=== PATIENT | female | born 2000 | race Caucasian/White ===

== ENCOUNTER → 2020-10-08 14:57 | Outpatient (BNVA) | payer MEDICAID, SELFPAY | PROVIDERS: Visit Provider Advanced Practice Midwife | DX: Z32.02 Encounter for pregnancy test, result negative (principal) | CPT/HCPCS: 81025; 99212 ==

== ENCOUNTER 2021-03-04 09:23 | Outpatient (REF) | payer MEDICAID, SELFPAY ==
[2021-03-04 11:07] LABS: Hematocrit 40.1 % (37-47); Hemoglobin 13.2 g/dl (12.0-16.0); Mean Corpuscular HGB Conc 32.9 g/dl (31.0-35.0); Mean Corpuscular Hemoglobin 30.6 pg (27.0-33.0); Mean Platelet Volume 10.5 fL (9.4-12.3); Platelet Count 183 X10*3/uL (160-400); Red Blood Count 4.31 X10*6/uL (4.20-5.50); Red Cell Distribution Width 11.9 % (11.0-16.0)
[2021-03-04 12:14] LABS: Thyroid Stimulating Hormone 0.95 uIU/mL (0.32-4.0)
[2021-03-04 14:03] LABS: CT PCR NOT DETECTED (Not Detect.); NG PCR NOT DETECTED (Not Detect.)
[2021-03-05 09:11] LABS: BV Int Neg Control Negative (Negative); BV Int Pos Control Positive (Positive)
== END 2021-03-04 09:24 | disposition home or self-care (01) ==
LOC: HO.LAB 09:23
PROVIDERS: Visit Provider Advanced Practice Midwife
DX: N93.9 Abnormal uterine and vaginal bleeding, unspecified (principal); N92.1 Excessive and frequent menstruation with irregular cycle; Z20.2 Contact with and (suspected) exposure to infections with a predominantly sexual mode of transmission
CPT/HCPCS: 36415; 81025; 84443; 85027; 87480; 87491; 87510; 87591; 87660; 99212

== ENCOUNTER 2021-06-12 13:48 | Outpatient (REF) | payer MEDICAID, SELFPAY ==
[2021-06-13 11:37] LABS: CT PCR NOT DETECTED (Not Detect.); NG PCR NOT DETECTED (Not Detect.)
== END 2021-06-12 13:49 | disposition home or self-care (01) ==
LOC: HO.LAB 13:48
PROVIDERS: Advanced Practice Midwife; Visit Provider Advanced Practice Midwife
DX: Z01.419 Encounter for gynecological examination (general) (routine) without abnormal findings (principal); Z11.3 Encounter for screening for infections with a predominantly sexual mode of transmission; Z20.2 Contact with and (suspected) exposure to infections with a predominantly sexual mode of transmission; F17.200 Nicotine dependence, unspecified, uncomplicated; Z71.6 Tobacco abuse counseling
CPT/HCPCS: 87491; 87591; 88142

== ENCOUNTER 2021-06-16 10:08 | Emergency (ER) | payer MEDICAID, SELFPAY ==
[2021-06-16 10:16] VITALS: BP 100/67; PULSE 97; RESP 16; TEMP 37.2; O2SAT 97; BMI 29.2
--- NOTE | 2021-06-16 11:41 | ED.BACK ---
HPI - Back Pain/Injury General Chief Complaint: Back Pain/Injury Stated Complaint: back pain Time Seen by Provider: 06/16/21 11:12 Source: patient Mode of arrival: ambulatory Limitations: no limitations History of Present Illness HPI Narrative: 20-year-old female who presents emergency department for evaluation lower back injury. 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 The injury occurred Wednesday06/13/2021. She states that initially the pain was mild to moderate intensity but the next day, the pain was severe and was 10/10. She describes the pain is a constant, tightness like sensation with numbness that radiates down her right leg to her foot mainly along the lateral aspect. She denied any weakness or loss of bowel or bladder control. She states that she has been taking ibuprofen for the pain with minimal relief. The patient has not been able to work secondary to her pain. She states that she had 1 episode of emesis triggered by severe pain. She states the pain is 10/10 at its worse and is 6/10 here in the emergency department. The patient denied fever, chills, Related Data Previous Rx's Medication Instructions Recorded cyclobenzaprine 10 mg tablet 10 mg PO TID PRN #15 tab 06/16/21 prednisone 20 mg tablet 60 mg PO DAILY 7 Days #21 tab 06/16/21 Allergies Allergy/AdvReac Type Severity Reaction Status Date / Time amitriptyline [AMITRIPTYLINE] Allergy Severe RASH Verified 06/12/21 14:50 azithromycin [From ZITHROMAX] Allergy Severe SWELLING Verified 06/12/21 14:50 erythromycin base Allergy Intermediate RASH Verified 06/12/21 14:50 [From ERYTHROCIN] Erythromycin Allergy Unknown rash Uncoded 04/12/20 00:00 Review of Systems Review of Systems: Yes all other systems are reviewed and are negative [facility] LAT[facility] Past Medical History FOR[facility], LAT[facility] Narrative: Social history: The patient denies cigarette use but does use nicotine vaping products multiple times a day. She occasionally drinks alcohol, she denies drug use. Medical History H/O bipolar disorder History of anxiety PTSD (post-traumatic stress disorder) Surgical History Hx of adenoidectomy Hx of wisdom tooth extraction Family History Family History (Updated 06/12/21 @ 15:24 by Emre Carpenter) Maternal Uncle Breast cancer Social History Social History Alcohol intake: current Alcohol intake frequency: a few times a week Patient Tobacco Use Status: Current everyday Tobacco user e-Cigarette/Vaping Use: Currently Using Advance Directives: No Advance Directives Information Provided: No Patient : No Physical Exam Vital Signs: Vital Signs: Last Vital Signs Temp 98.9 F 06/16/21 10:16 Pulse 97 06/16/21 10:16 Resp 16 06/16/21 10:16 BP 100/67 06/16/21 10:16 Pulse Ox 97 06/16/21 10:16 Body Mass Index 29.2 Const: General: cooperative and no acute distress Orientation/consciousness: oriented to person and oriented to place Limitations: no limitations HENMT: Head: Yes normal to inspection, Yes normocephalic and Yes atraumatic Ears: external ears normal General nose exam: Normal external nose present Face and sinus: Yes normal facial exam Mouth: Normal oral and palatal mucosa present Throat: Yes posterior oropharynx normal Eyes: General: appearance normal, both eyes and all related structures Pupils: Equal, round and reactive pupils present Neck: Neck: Yes normal visual inspection, Yes no lymphadenopathy, Yes trachea midline and Yes supple Chest: Chest palpation & inspection: normal inspection of the chest and normal palpation of entire chest wall Resp: Effort & Inspection: normal respiratory effort and able to speak in complete sentences Auscultation: clear to auscultation bilaterally Cardio: Rate: regular rate Rhythm: regular rhythm Heart sounds: S1 normal heart sound present, S2 normal heart sound present and no murmurs GI: Inspection: Yes normal to inspection Palpation (GI): Soft to palpation, nontender and no guarding Auscultation: normal bowel sounds : General: Yes no CVA tenderness Back/Spine/Pelvis: Back: no CVA tenderness Thoracic/Lumbar Spine: thoracic and lumbar spine normal to inspection, straight leg raise negative bilaterally, paraspinal muscle tenderness on the right in the lower lumbar, No thoracic spinal tenderness and No lumbar spinal tenderness Skin: General skin exam: no rashes or lesions noted Neuro: General: oriented to person and oriented to place Cranial nerves: Yes CN's II-XII intact bilaterally and Yes Equal, round and reactive pupils present Cognition (Neuro): normal cognition Motor exam (neuro): 5/5 motor strength present throughout Extrem: General: Yes normal to inspection Psych: Appearance: grossly normal Speech and movement: Normal speech and movement present Affect: normal affect Attitude: cooperative Thought process: Normal thought process present Thought content: Normal thought content present Course Course Course Narrative: 20-year-old female who presents emergency department for evaluation of 5 days of right lower back pain with numbness that goes down her right leg to her foot with no weakness or loss of bowel or bladder control. 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 The patient has been taking ibuprofen with no improvement of her pain. Physical examination did reveal tenderness with palpation of the lumbar lower paraspinal muscles with no vertebral tenderness. Her neurologic exam was nonfocal with normal strength and normal sensory exam. Patient's presentation is consistent with lumbar strain with radiculopathy. The patient was advised to stop taking ibuprofen and she started on prednisone 60 mg once a day for 7 days. She was advised to take Tylenol for pain and she was also given prescription for Flexeril 10 mg 3 times a day as needed for pain and spasm. The patient was given verbal and printed instructions prior to discharge. The patient was advised to follow-up with her PCP/occupational Health Clinic in 2 days and to return to the emergency department if her symptoms get worse or if she develops any new symptoms that are concerning to her. The patient was advised not to work until she is re-evaluated by the occupational health clinic or her PCP. Discharge Plan Discharge Clinical Impression: Radiculopathy of lumbar region Back strain Qualifiers: Encounter type: initial encounter Qualified Code(s): S39.012A - Strain of muscle, fascia and tendon of lower back, initial encounter Patient Disposition: Home, Self-Care Instructions: Lumbar Radiculopathy (ED) Additional Instructions: Back Pain Discharge Instructions: Take prednisone 20 mg pills, 3 pills once a day for 7 days. This is a strong anti-inflammatory pain medication. Do not take any [id number]-[id number] anti-inflammatory medications while urine prednisone such as ibuprofen, Motrin, Advil, Aleve, naproxen. Take Tylenol (acetaminophen) 500 mg pills, 2 pills every 6 hours as needed for pain. Take Flexeril (cyclobenzaprine) 10 mg pills, 1 pill every 8 hours as needed for pain or muscle spasm. This is a prescription medication. This medication will make you sleepy, therefore do not drive or work while taking this medication. Apply ice for 15 minutes to the area that hurts on your back, then apply a heating a pad on low for 15 minutes. Do this 4-6 times a day to help reduce the pain in your back. Continue with normal activities as tolerated since staying in bed and not moving around will make your pain worse. Please return to the Emergency Department or see your doctor immediately if your symptoms get worse or if you develop any new symptoms that are concerning you. This is a work related injury. Call your primary care doctor's office to see if they take care of people that are injured at work (worker's compensation). If your primary care doctor does not deal with worker's compensation them call our Occupational Health Clinic, [facility] . No work until 06/18/2021. You should follow-up with the occupational health clinic or your PCP before this day to determine your back to work status. Please read the other printed discharge instructions on back pain. Prescriptions: New cyclobenzaprine 10 mg tablet 10 mg PO TID PRN (Reason: pain, muscle spasm) Qty: 15 RF: 0 prednisone 20 mg tablet 60 mg PO DAILY 7 Days Qty: 21 RF: 0 Interventions: ED Discharge Assessment Last Done: 06/16/21 12:05 Discharge Date/Time: 06/16/21 12:05
== END 2021-06-16 12:05 | disposition home or self-care (01) ==
PROVIDERS: Emergency Provider Emergency Medicine Emergency Medical Services
DX: M54.16 Radiculopathy, lumbar region (principal); F17.200 Nicotine dependence, unspecified, uncomplicated; Z71.6 Tobacco abuse counseling; Z79.899 Other long term (current) drug therapy
CPT/HCPCS: 99283

== ENCOUNTER 2021-07-08 14:34 | Emergency (ER) | payer MEDICAID, SELFPAY ==
--- NOTE | ~2021-07-08 | US_ITS ---
Pelvic ultrasound History: Left lower quadrant pain. No bleeding. Quantitative hCG 06934 (07/08/2021). Last menstrual period 02/26/2021 corresponding to a gestational age of 6 weeks and 6 days. Technique and Findings: Transabdominal and transvaginal images were obtained. No comparison studies are available. The uterus measures 10.9 x 4.8 x 5.9 cm. There is a single live intrauterine . The measurements are as follows: crown-rump length (0.7 cm), and heart rate (122). There is a small subchorionic bleed measuring 0.8 x 0.3 x 0.5 cm. The approximate gestational age of the fetus is 6 weeks and 5 days. The uterus appears otherwise unremarkable. The cervical os is closed with trace amount of free fluid. The right ovary measures 4.4 x 1.6 x 2.4 cm. The left ovary measures 2.2 x 1.5 x 1.3 cm and demonstrates no focal lesions. A normal flow pattern is seen in both ovaries on color Doppler. Corpus luteum cyst is present in the right ovary and measures 1.7 x 1.2 x 1.5 cm. There is no evidence of free fluid within the pelvis. US/US transvaginal Impression: Single live intrauterine of an approximate gestational age of 6 weeks and 5 days. Small subchorionic bleeding. Right corpus luteal cyst. No evidence of ovarian torsion at the moment of this study.
--- NOTE | ~2021-07-08 | US_ITS ---
Pelvic ultrasound History: Left lower quadrant pain. No bleeding. Quantitative hCG [id number] (07/08/2021). Last menstrual period 02/26/2021 corresponding to a gestational age of 6 weeks and 6 days. Technique and Findings: Transabdominal and transvaginal images were obtained. No comparison studies are available. The uterus measures 10.9 x 4.8 x 5.9 cm. There is a single live intrauterine . The measurements are as follows: crown-rump length (0.7 cm), and heart rate (122). There is a small subchorionic bleed measuring 0.8 x 0.3 x 0.5 cm. The approximate gestational age of the fetus is 6 weeks and 5 days. The uterus appears otherwise unremarkable. The cervical os is closed with trace amount of free fluid. The right ovary measures 4.4 x 1.6 x 2.4 cm. The left ovary measures 2.2 x 1.5 x 1.3 cm and demonstrates no focal lesions. A normal flow pattern is seen in both ovaries on color Doppler. Corpus luteum cyst is present in the right ovary and measures 1.7 x 1.2 x 1.5 cm. There is no evidence of free fluid within the pelvis. US/US OB <= 14 weeks fetus Impression: Single live intrauterine of an approximate gestational age of 6 weeks and 5 days. Small subchorionic bleeding. Right corpus luteal cyst. No evidence of ovarian torsion at the moment of this study.
[2021-07-08 14:46] VITALS: BP 125/76; PULSE 118; RESP 18; TEMP 36.8; O2SAT 98; BMI 29.2
[2021-07-08 15:11] LABS: MANUAL DIFF FLAG NO
[2021-07-08 15:13] LABS: Basophils Absolute Auto 0.1 X10*3/uL (0.0-0.2); Basophils Percent Auto 0.8 % (0-2); Hematocrit 38.9 % (37-47); Hemoglobin 13.4 g/dl (12.0-16.0); Imm Gran Abs Auto 0.06 X10*3/uL (0.00-0.03); Imm Gran Pct Auto 0.7 % (0.0-0.4); Lymphocytes Absolute Auto 1.7 X10*3/uL (1.2-4.9); Lymphocytes Percent Auto 18.6 % (20-40); Mean Corpuscular HGB Conc 34.4 g/dl (31.0-35.0); Mean Corpuscular Hemoglobin 30.7 pg (27.0-33.0); Mean Platelet Volume 10.5 fL (9.4-12.3); Monocytes Absolute Auto 0.7 X10*3/uL (0.1-1.2); Monocytes Percent Auto 7.3 % (2-11); Neutrophils Absolute Auto 6.4 X10*3/uL (2.0-8.3); Neutrophils Percent Auto 72.6 % (45-73); Platelet Count 186 X10*3/uL (160-400); Red Blood Count 4.37 X10*6/uL (4.20-5.50); Red Cell Distribution Width 12.1 % (11.0-16.0); White Blood Count 8.9 X10*3/uL (4.8-10.8)
[2021-07-08 15:16] LABS: Appearance Urine CLEAR; Color Urine YELLOW; Glucose Urine UA NEG (NEG); Leukocyte Esterase Urine NEG (NEG); Nitrite Urine NEG (NEG); PH 6.5 (5.0-8.0); Specific Gravity - Urine 1.015 (1.005-1.025); Urine Blood NEG (NEG); Urine Ketones NEG (NEG); Urine Protein NEG (NEG-TRACE)
[2021-07-08 15:17] LABS: UPreg QC Valid YES; Urine Pregnancy POSITIVE (NEGATIVE)
[2021-07-08 16:00] LABS: Alanine Aminotransferase 34 U/L (0-31); Albumin Level 4.5 g/dL (3.5-5.0); Alkaline Phosphatase 65 U/L (39-117); Aspartate Amino Transferase 24 U/L (5-31); Bilirubin Total 0.7 mg/dL (0.0-1.0); Blood Urea Nitrogen 6 mg/dL (9-16); Calcium 9.6 mg/dL (8.4-10.2); Creatinine Clr Calc Pharmacy 112.7; Estimated Glomerular Filt Rate > 60; Glucose Random 97 mg/dL (60-115); Total Protein 7.1 g/dL (6.5-8.0)
[2021-07-08 16:11] LABS: Anion Gap 11 (12-20); Carbon Dioxide 25 mmol/L (22-29); Chloride 104 mmol/L (96-108); Potassium 4.2 mmol/L (3.3-5.1); Sodium 136 mmol/L (135-145)
[2021-07-08 21:08] LABS: Delay - Chemistry DELAY
--- NOTE | 2021-07-08 21:12 | ED.ABDPAIN ---
HPI - Abdominal Pain General Chief Complaint: Abdominal Pain Stated Complaint: cramping - Time Seen by Provider: 07/08/21 20:48 Source: patient Mode of arrival: ambulatory Limitations: no limitations History of Present Illness HPI narrative: 21-year-old female who presents emergency department for evaluation of early and abdominal pain. The patient states that her last menstrual period was 05/22/2021 which gives her a gestational age of 6 weeks and 5 days with a ELIAN February 26, 2022. The patient is a she has a 5-year-old child. The patient states that she has been experiencing left lower quadrant abdominal pain for approximately 3 days. She states the pain has been intermittent and mild in intensity. She states that yesterday she sneezed and the pain increased. She states the pain is a sharp stabbing pain which is 10/10 at its worst. She has had associated nausea for 2 days with no vomiting. She states that prior to the onset of her abdominal pain she was sick for 2 weeks with a upper respiratory illness which is resolved. The patient has been vaccinated with [employer] COVID 19 vaccine. Related Data Previous Rx's Medication Instructions Recorded cyclobenzaprine 10 mg tablet 10 mg PO TID PRN #15 tab 06/16/21 prednisone 20 mg tablet 60 mg PO DAILY 7 Days #21 tab 06/16/21 vitamins no.147-iron 1 tab PO DAILY #90 tab 07/09/21 gluconate 13 mg-folic acid 1 mg tablet Allergies Allergy/AdvReac Type Severity Reaction Status Date / Time amitriptyline [AMITRIPTYLINE] Allergy Severe RASH Verified 07/08/21 14:45 azithromycin [From ZITHROMAX] Allergy Severe SWELLING Verified 07/08/21 14:45 erythromycin base Allergy Intermediate RASH Verified 07/08/21 14:45 [From ERYTHROCIN] latex Allergy Intermediate Rash Verified 07/08/21 14:45 Erythromycin Allergy Unknown rash Uncoded 04/12/20 00:00 Review of Systems Review of Systems Yes all other systems are reviewed and are negative Physical Exam Vital Signs: Vital Signs: Last Vital Signs Temp 98.2 F 07/08/21 22:00 Pulse 97 07/08/21 22:00 Resp 18 07/08/21 22:00 BP 115/70 07/08/21 22:00 Pulse Ox 99 07/08/21 22:00 Body Mass Index 29.2 Const: General: cooperative and no acute distress Orientation/consciousness: oriented to person and oriented to place Limitations: no limitations HENMT: Head: Yes normal to inspection, Yes normocephalic and Yes atraumatic Ears: external ears normal General nose exam: Normal external nose present Face and sinus: Yes normal facial exam Mouth: Normal oral and palatal mucosa present Throat: Yes posterior oropharynx normal Eyes: General: appearance normal, both eyes and all related structures Pupils: Equal, round and reactive pupils present Neck: Neck: Yes normal visual inspection, Yes no lymphadenopathy, Yes trachea midline and Yes supple Chest: Chest palpation & inspection: normal inspection of the chest and normal palpation of entire chest wall Resp: Effort & Inspection: normal respiratory effort and able to speak in complete sentences Auscultation: clear to auscultation bilaterally Cardio: Rate: regular rate Rhythm: regular rhythm Heart sounds: S1 normal heart sound present, S2 normal heart sound present and no murmurs GI: Inspection: Yes normal to inspection Palpation (GI): Soft to palpation, Tenderness to palpation present (GI) in the LLQ (Moderate) and no guarding Auscultation: normal bowel sounds : General: Yes no CVA tenderness Back/Spine/Pelvis: Back: no CVA tenderness Skin: General skin exam: no rashes or lesions noted Neuro: General: oriented to person and oriented to place Cranial nerves: Yes CN's II-XII intact bilaterally and Yes Equal, round and reactive pupils present Cognition (Neuro): normal cognition Motor exam (neuro): 5/5 motor strength present throughout Extrem: General: Yes normal to inspection Psych: Appearance: grossly normal Speech and movement: Normal speech and movement present Affect: normal affect Attitude: cooperative Thought process: Normal thought process present Thought content: Normal thought content present Course Course Course Narrative: 21-year-old female LMP 05/22/2021, 6 weeks 5 days based on LMP, presents with 3 days of left lower quadrant pain. Physical examination did reveal left lower quadrant tenderness. Laboratory evaluation revealed an elevated quantitative beta-hCG of 35,400. Pelvic ultrasound ordered to rule out a topic . 0053: The patient's ultrasound revealed a single intrauterine . The patient does have a small subchorionic bleed with no abnormalities noted in the left lower quadrant to explain the patient's pain. I did discuss this finding with the patient. I will check a ABO Rh on the patient however from her last she did not require RhoGAM so suspect that she is Rh positive. The patient was advised to take Tylenol for pain. I did prescribe vitamins. She will need to follow-up with her OBGYN for re-evaluation for further management. She was advised return emergency department if her symptoms get worse or if her develops any new symptoms that are concerning to her. MDM - Abdominal Pain Lab Data Result diagrams: 07/08/21 15:05 07/08/21 15:05 Labs: Lab Results 07/08/21 07/08/21 07/08/21 Range/Units 15:05 15:05 15:05 WBC 8.9 (4.8-10.8) X10*3/uL RBC 4.37 (4.20-5.50) X10*6/uL Hgb 13.4 (12.0-16.0) g/dl Hct 38.9 (37-47) % MCV 89.0 (80-98) fL MCH 30.7 (27.0-33.0) pg MCHC 34.4 (31.0-35.0) g/dl RDW 12.1 (11.0-16.0) % Plt Count 186 (160-400) X10*3/uL MPV 10.5 (9.4-12.3) fL Immature Gran % (Auto) 0.7 H (0.0-0.4) % Neut % (Auto) 72.6 (45-73) % Lymph % (Auto) 18.6 L (20-40) % Davis % (Auto) 7.3 (2-11) % Eos % (Auto) 0.0 (0-4) % Baso % (Auto) 0.8 (0-2) % Lymph # (Auto) 1.7 (1.2-4.9) X10*3/uL Davis # (Auto) 0.7 (0.1-1.2) X10*3/uL Eos # (Auto) 0.0 (0.0-0.4) X10*3/uL Baso # (Auto) 0.1 (0.0-0.2) X10*3/uL Abs Immat Gran (auto) 0.06 H (0.00-0.03) X10*3/uL Absolute Neuts (auto) 6.4 (2.0-8.3) X10*3/uL Absolute Nucleated RBC 0.000 (0.0-0.012) X10*3/uL Nucleated RBC % (auto) 0.0 (0.0-0.2) /100WBC Sodium 136 (135-145) mmol/L Potassium 4.2 (3.3-5.1) mmol/L Chloride 104 (96-108) mmol/L Carbon Dioxide 25 (22-29) mmol/L Anion Gap 11 L (12-20) BUN 6 L (9-16) mg/dL Creatinine 0.73 (0.5-1.4) mg/dL Estim Creat Clear Calc 112.7 Estimated GFR > 60 Random Glucose 97 (60-115) mg/dL Calcium 9.6 (8.4-10.2) mg/dL Total Bilirubin 0.7 (0.0-1.0) mg/dL AST 24 (5-31) U/L ALT 34 H (0-31) U/L Alkaline Phosphatase 65 (39-117) U/L Total Protein 7.1 (6.5-8.0) g/dL Albumin 4.5 (3.5-5.0) g/dL Beta HCG, Quant 00953 mIU/mL Specimen Comment Urine Color YELLOW Urine Appearance CLEAR Urine pH 6.5 (5.0-8.0) Ur Specific Baldwin 1.015 (1.005-1.025) Urine Protein NEG (NEG-TRACE) MG/DL Urine Glucose (UA) NEG (NEG) MG/DL Urine Ketones NEG (NEG) MG/DL Urine Blood NEG (NEG) Urine Nitrite NEG (NEG) Ur Leukocyte Esterase NEG (NEG) Urine Test (NEGATIVE) 07/08/21 07/08/21 Range/Units 15:05 15:05 WBC (4.8-10.8) X10*3/uL RBC (4.20-5.50) X10*6/uL Hgb (12.0-16.0) g/dl Hct (37-47) % MCV (80-98) fL MCH (27.0-33.0) pg MCHC (31.0-35.0) g/dl RDW (11.0-16.0) % Plt Count (160-400) X10*3/uL MPV (9.4-12.3) fL Immature Gran % (Auto) (0.0-0.4) % Neut % (Auto) (45-73) % Lymph % (Auto) (20-40) % Davis % (Auto) (2-11) % Eos % (Auto) (0-4) % Baso % (Auto) (0-2) % Lymph # (Auto) (1.2-4.9) X10*3/uL Davis # (Auto) (0.1-1.2) X10*3/uL Eos # (Auto) (0.0-0.4) X10*3/uL Baso # (Auto) (0.0-0.2) X10*3/uL Abs Immat Gran (auto) (0.00-0.03) X10*3/uL Absolute Neuts (auto) (2.0-8.3) X10*3/uL Absolute Nucleated RBC (0.0-0.012) X10*3/uL Nucleated RBC % (auto) (0.0-0.2) /100WBC Sodium (135-145) mmol/L Potassium (3.3-5.1) mmol/L Chloride (96-108) mmol/L Carbon Dioxide (22-29) mmol/L Anion Gap (12-20) BUN (9-16) mg/dL Creatinine (0.5-1.4) mg/dL Estim Creat Clear Calc Estimated GFR Random Glucose (60-115) mg/dL Calcium (8.4-10.2) mg/dL Total Bilirubin (0.0-1.0) mg/dL AST (5-31) U/L ALT (0-31) U/L Alkaline Phosphatase (39-117) U/L Total Protein (6.5-8.0) g/dL Albumin (3.5-5.0) g/dL Beta HCG, Quant mIU/mL Specimen Comment DELAY Urine Color Urine Appearance Urine pH (5.0-8.0) Ur Specific Baldwin (1.005-1.025) Urine Protein (NEG-TRACE) MG/DL Urine Glucose (UA) (NEG) MG/DL Urine Ketones (NEG) MG/DL Urine Blood (NEG) Urine Nitrite (NEG) Ur Leukocyte Esterase (NEG) Urine Test POSITIVE H (NEGATIVE) Discharge Plan Discharge Clinical Impression: Abdominal pain affecting , Intrauterine Patient Disposition: Home, Self-Care Instructions: Abdominal Pain in (ED) Additional Instructions: Your quantitative beta-hCG was 35,400. The ultrasound revealed an intrauterine which is reassuring. There was very small amount blood noted in the chorionic space, this is not uncommon early on in . Take the vitamins as prescribed. I will check your blood type and contact the with your blood type. Called the supervisor public message service for follow-up within 2-3 days. Please return to the emergency department if her symptoms get worse or if you develop any new symptoms that are concerning to you. Prescriptions: New 147-iron gluc-folic 13 mg iron- 1 mg tablet 1 tab PO DAILY Qty: 90 RF: 0 No Action cyclobenzaprine 10 mg tablet 10 mg PO TID PRN (Reason: pain, muscle spasm) Qty: 15 RF: 0 prednisone 20 mg tablet 60 mg PO DAILY 7 Days Qty: 21 RF: 0 PMFSH Past Medical History PMFSH Narrative: Past medical history: Asthma, bipolar disorder, anxiety, PTSD, . Past surgical history: None. Social history: The patient vapes tobacco E cigarettes, she states that she has cut down since she has found out she was . The patient drink alcohol moderation but she states that she stops and she found that she was . She denies drug use. Medical History Abnormal Pap smear of cervix H/O bipolar disorder History of anxiety PTSD (post-traumatic stress disorder) Surgical History Hx of adenoidectomy Hx of wisdom tooth extraction Family History Family History (Updated 06/12/21 @ 15:24 by Emre Carpenter) Maternal Uncle Breast cancer Social History Social History Alcohol intake: never Patient Tobacco Use Status: Current everyday Tobacco user e-Cigarette/Vaping Use: Currently Using Use of substances other than those prescribed or required for medical reasons: No Advance Directives: No Advance Directives Information Provided: Yes Patient : Yes
[2021-07-08 22:00] VITALS: BP 115/70; PULSE 97; RESP 18; TEMP 36.8; O2SAT 99
--- NOTE | 2021-07-08 22:46 | PC.NURSE ---
patient a&ox3, c/o rlq abd pain 02/03, vss, pt awaiting results of testing, calling lab to see results, will continue to monitor.
--- NOTE | 2021-07-08 22:54 | PC.NURSE ---
lab states that the analyzer for the blood is down for the next 30 minutes at least, will notify the md
[2021-07-08 23:37] LABS: HCG Quantitative 35400 mIU/mL
[2021-07-09] VITALS: BP 115/61; PULSE 82; RESP 16; O2SAT 99
== END 2021-07-09 01:27 | disposition home or self-care (01) ==
PROVIDERS: Emergency Provider Emergency Medicine Emergency Medical Services
DX: O26.91 Pregnancy related conditions, unspecified, first trimester (principal); Z3A.01 Less than 8 weeks gestation of pregnancy; Z79.899 Other long term (current) drug therapy
CPT/HCPCS: 36415; 76801; 76817; 76830; 80053; 81003; 81025; 84702; 85025; 86900; 86901; 99284

== ENCOUNTER → 2021-07-24 08:29 | Outpatient (BNVA) | payer MEDICAID, SELFPAY | PROVIDERS: Visit Provider Obstetrics & Gynecology | DX: O99.411 Diseases of the circulatory system complicating pregnancy, first trimester (principal); R01.1 Cardiac murmur, unspecified; O99.511 Diseases of the respiratory system complicating pregnancy, first trimester; J45.909 Unspecified asthma, uncomplicated; O99.331 Smoking (tobacco) complicating pregnancy, first trimester; U07.0 Vaping-related disorder; Z88.1 Allergy status to other antibiotic agents; Z91.040 Latex allergy status; Z67.40 Type O blood, Rh positive; Z3A.08 8 weeks gestation of pregnancy | CPT/HCPCS: 99212 ==

== ENCOUNTER → 2021-08-07 14:00 | Outpatient (BNVA) | payer MEDICAID, SELFPAY | PROVIDERS: Visit Provider Obstetrics & Gynecology | DX: Z34.91 Encounter for supervision of normal pregnancy, unspecified, first trimester (principal); Z3A.11 11 weeks gestation of pregnancy | CPT/HCPCS: 99212 ==

== ENCOUNTER → 2021-08-27 10:24 | Outpatient (REF) | payer MEDICAID, SELFPAY ==
--- NOTE | 2021-08-27 10:29 | CA_ITS ---
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 The calculated ejection fraction is 61% by biplane method. - There is mild to moderately decreased right ventricular systolic function. - No obvious valvular pathology seen on this study. Findings Left Ventricle Normal left ventricular cavity size. There is normal left ventricular wall thickness. The left ventricular systolic function is normal. The calculated ejection fraction is 61% by biplane method. There is no evidence of regional wall motion abnormalities. Diastolic function is normal for age. Right Ventricle Normal right ventricular cavity size. There is mild to moderately decreased right ventricular systolic function. TAPSE 1.3cm. Basal part of right ventricle with reduced contractility. Atria Both atria are normal in size. Aortic Valve There is a normal trileaflet aortic valve. There is no aortic valve stenosis. There is no aortic valve regurgitation. Mitral Valve The mitral valve appears normal. There is no mitral valve regurgitation. There is no mitral valve stenosis. Pulmonic Valve The pulmonic valve was not well visualized. Tricuspid Valve Normal tricuspid valve structure. There is trace tricuspid valve regurgitation. Tricuspid regurgitation envelope is inadequate for calculation of right ventricular systolic pressure. Great Vessels The aortic annulus, sinuses of valsalva, and asc aorta are normal in size. Venous The inferior vena cava is normal in size and collapses greater than 50% with inspiration. Pericardium/Pleural There is no evidence of pericardial effusion. Prior Study Comparison No prior study available for comparison. Recommendations, Care & Conclusions No obvious valvular pathology seen on this study. Measurements 2D Linear Measurements IVSd: 0.90 0.6-0.9/0.6-1.0 cm LVIDd: 3.49 3.9-5.3/4.2-5.9 cm LVIDd Index: 2.03 2.4-3.2/2.2-3.1 cm/m2 LVIDs: 2.31 2.0-3.6 cm LVPWd: 0.93 0.7-1.1 cm Ao Root: 2.50 2.1-3.5 cm LA Diam: 3.10 2.7-3.8/3.0-4.0 cm LAIDs Index: 1.80 1.5-2.3 cm/m2 LV Mass: 111.94 67-162/88-224 g LV Mass Index: 65.08 43-95/49-115 g/m2 LVOT Diam: 1.70 3.0+(-)1.3 cm 2D Systolic Function EF 4C: 55.40 >55% EF 2C: 63.80 >55% EF BiP: 60.50 >55% Mitral Valve MV Pk E: 0.73 MV PK A: 0.66 MV Decel Time: 127.00 E/A: 1.10 E'Lateral: 16.20 E'Medial: 10.40 E/E' Med: 7.00 E/E' Lat: 4.50 PHT: 37.00 MVA PHT: 5.[address] [place]: 5.77 Aortic Valve AoV Pk Ace: 1.34 AoV Pk Grad: 7.00 LVOT LVOT Pk Ace: 1.07 LVOT Mn Ace: 0.65 LVOT VTI: 0.19 LVOT Pk Grad: 5.00 LVOT Mn Grad: 2.00 LVOT Diam: 1.70 LVOT Area: 2.27 Diastolic Function MV Pk E: 0.73 MV Pk A: 0.66 E/A: 1.10 E'Medial: 10.40 E/E' Med: 7.00 E' Laterial: 16.20 E/E' Lat: 4.50 Right Ventricle TAPSE (mm): 1.40 Tricuspid Valve RA Press: 3.00 Great Vessels Aorta Ao Root-2D: 2.50 2.0-3.7 cm Ao Asc: 2.30 2.1-3.4 cm Updated in Other Vendor System with Status of Final Hernesto Patterson MD electronically signed on 08/27/2021 4:39:33 PM with status of Final
== END ==
LOC: HO.CARD 10:24
PROVIDERS: Visit Provider Obstetrics & Gynecology
DX: R01.1 Cardiac murmur, unspecified (principal)
CPT/HCPCS: 93306

== ENCOUNTER 2021-08-29 09:23 | Outpatient (REF) | payer MEDICAID, SELFPAY ==
--- NOTE | ~2021-08-29 | US_ITS ---
EXAMINATION: OBSTETRICAL ULTRASOUND, FIRST TRIMESTER HISTORY: 21-year-old at 14.1 weeks of gestation NT screening COMPARISON: 07/09/2021 TECHNIQUE: Real time transabdominal imaging with color and M-mode Doppler. FINDINGS: A single, live IUP CRL of 81.4 mm c/w 14.1wks is noted. Heart Rate: 150 beats per minute. Normal yolk sac seen. NT was 1.46.mm. NB Present The embryo appears sonographically wnl for this GA. Both maternal ovaries are seen and appear normal. GESTATIONAL AGE: 1. Established GA: 14.1 wks 2. GA from AUA: 14.1 wks ESTIMATED DATE OF DELIVERY: 1. Established ELIAN: 02/26/2022 2. ELIAN from AUA: 02/26/2022 US/US OB 1T nuc measure IMPRESSION: 1. Single live IUP 2. Size equals dates 3. NT of 1.64 mm MFM Consultation: I reviewed the ultrasound findings along with significance of NT measurement. The NT of less than 3mm is generally reassuring. However, the sensitivity for T21 detection is only 60%. I reviewed the availability of serum aneuploidy screening which includes cell-free DNA and placental protein based tests. I discussed the sensitivity, false-positive rate, and other limitations associated with each test. I also reviewed the availability of invasive diagnostic tests that are associated small but definite risk of miscarriage. We also reviewed the differences between screening tests and diagnostic tests. After our discussion, she opted for the First trimester screening that is based on cell-free DNA or non-invasive testing (NIPT). Patient has a history of a heart murmur. She had an echo which showed asymmetry of atria. This is according to the patient. I do not have the report for my examination today. She denies any exercise intolerance or cardiac symptoms in the past. She is to transfer her care to the [facility]. A follow up at 18 weeks for survey has been scheduled if she is unable to schedule this in time at the [facility]. Thank you very much for this referral. Total time 30 minutes. The time spent was devoted to counseling the patient about the disease and diagnosis, coordinating care including reviewing her records, pertinent lab data and studies, as well as discussing diagnostic evaluation and workup, plan therapeutic interventions and future disposition of care. This includes any additional research needed to obtain further information in formulating the plan of care of this patient. This note was generated with a voice recognition program. Please excuse any errors which may have been overlooked during my review of this note. Sometimes these errors may affect the content or meaning of a given sentence.
[2021-08-29 11:37] LABS: Hematocrit 34.6 % (37.0-47.0); Mean Corpuscular HGB Conc 34.7 g/dl (31.0-35.0); Mean Corpuscular Hemoglobin 30.8 pg (27.0-33.0); Mean Corpuscular Volume 88.9 fL (80.0-98.0); Mean Platelet Volume 10.8 fL (9.4-12.3); Platelet Count 184 X10*3/uL (160-400); Red Blood Count 3.89 X10*6/uL (4.20-5.50); Red Cell Distribution Width 12.5 % (11.0-16.0)
[2021-08-29 11:44] LABS: Syphilis Screen Nonreactive (Nonreactive)
[2021-08-29 11:47] LABS: HBsAGNum1 0.26 S/CO (0.00-0.99); HIV AB/AG Nonreactive (Nonreactive); HIV Num 1 0.09 S/CO (0.00-0.99); Hepatitis B Surface Antigen Negative (Negative)
[2021-08-29 11:49] LABS: ~HepC Num1 0.05 S/CO (0.00-0.79); ~Hepatitis C Antibody Nonreactive (Nonreactive)
[2021-08-29 13:17] LABS: Glucose 1 Hour PP 50gm Dose 67 mg/dL (60-140)
[2021-08-29 13:19] LABS: Amphetamine Screen Urine Not Detected (Not Detect); Barbiturates, Urine Not Detected (Not Detect); Benzodiazepines Screen Urine Not Detected (Not Detect); Cannabinoid Screen Urine Not Detected (Not Detect); Cocaine Screen Urine Not Detected (Not Detect); Fentanyl, urine Not Detected (Not Detect); Opiate Screen Urine Not Detected (Not Detect); Phencyclidine Screen Urine Not Detected (Not Detect)
[2021-09-01 21:41] LABS: Rubella IgG Antibody <0.90 Index; Varicella IgG Antibody <135.00 index
== END 2021-08-29 09:24 | disposition home or self-care (01) ==
LOC: HO.US 09:23
PROVIDERS: Visit Provider Obstetrics & Gynecology
DX: Z34.92 Encounter for supervision of normal pregnancy, unspecified, second trimester (principal); Z36.82 Encounter for antenatal screening for nuchal translucency
CPT/HCPCS: 76813; 80307; 85027; 86762; 86780; 86787; 86803; 86850; 86900; 86901; 87086; 87340; 87389

== ENCOUNTER 2021-09-06 22:23 | Emergency (ER) | payer MEDICAID, SELFPAY ==
--- NOTE | 2021-09-06 | ECG_ITS ---
Test Reason : ARRHYTHMIA Blood Pressure : / mmHG Vent. Rate : 107 BPM Atrial Rate : 107 BPM P-R Int : 132 ms QRS Dur : 072 ms QT Int : 318 ms P-R-T Axes : 065 082 039 degrees QTc Int : 424 ms Sinus tachycardia Otherwise normal ECG When compared with ECG of 27-DEC-2017 21:40, No significant change was found Referred By: Generic ED Physician Electronically Signed By:Dru Stover
[2021-09-06 23:02] VITALS: BP 139/84; PULSE 112; RESP 18; TEMP 36.8; O2SAT 97; BMI 27.2
[2021-09-07 00:07] LABS: MANUAL DIFF FLAG NO
[2021-09-07 00:10] LABS: Basophils Absolute Auto 0.1 X10*3/uL (0.0-0.2); Basophils Percent Auto 0.5 % (0-2); Eosinophils Percent Auto 0.2 % (0-4); Hematocrit 35.9 % (37.0-47.0); Hemoglobin 12.5 g/dl (12.0-16.0); Imm Gran Abs Auto 0.06 X10*3/uL (0.00-0.03); Imm Gran Pct Auto 0.5 % (0.0-0.4); Lymphocytes Absolute Auto 2.6 X10*3/uL (1.2-4.9); Lymphocytes Percent Auto 21.1 % (20-40); Mean Corpuscular HGB Conc 34.8 g/dl (31.0-35.0); Mean Corpuscular Hemoglobin 30.6 pg (27.0-33.0); Mean Corpuscular Volume 87.8 fL (80.0-98.0); Mean Platelet Volume 10.8 fL (9.4-12.3); Monocytes Absolute Auto 0.8 X10*3/uL (0.1-1.2); Monocytes Percent Auto 6.1 % (2-11); Neutrophils Absolute Auto 8.8 x10*3/uL (2.0-8.3); Neutrophils Percent Auto 71.6 % (45-73); Platelet Count 197 X10*3/uL (160-400); Red Blood Count 4.09 X10*6/uL (4.20-5.50); Red Cell Distribution Width 12.3 % (11.0-16.0); White Blood Count 12.3 X10*3/uL (4.8-10.8)
[2021-09-07 00:24] LABS: Alanine Aminotransferase 22 U/L (0-31); Albumin Level 4.1 g/dL (3.5-5.0); Alkaline Phosphatase 63 U/L (39-117); Anion Gap 12 (12-20); Aspartate Amino Transferase 21 U/L (5-31); Bilirubin Total 0.8 mg/dL (0.0-1.0); Blood Urea Nitrogen 10 mg/dL (9-16); Calcium 9.9 mg/dL (8.4-10.2); Carbon Dioxide 23 mmol/L (22-29); Chloride 103 mmol/L (96-108); Creatinine Clr Calc Pharmacy 115.3; Estimated Glomerular Filt Rate > 60; Glucose Random 80 mg/dL (60-115); Potassium 4.3 mmol/L (3.3-5.1); Sodium 134 mmol/L (135-145); Total Protein 6.9 g/dL (6.5-8.0)
[2021-09-07 00:27] LABS: Troponin-I High Sensitivity < 3.5 ng/L (<3.5-17.0)
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
[2021-09-07 01:30] LABS: Appearance Urine CLOUDY; Color Urine YELLOW; Glucose Urine UA NEG (NEG); Leukocyte Esterase Urine NEG (NEG); Nitrite Urine NEG (NEG); Specific Gravity - Urine >= 1.030 (1.005-1.025); Urine Blood NEG (NEG); Urine Ketones >=80 MG/DL (NEG); Urine Protein TRACE MG/DL (NEG-TRACE)
[2021-09-07 01:31] LABS: UACC Culture Trigger NO
[2021-09-07] MEDS: Ondansetron ODT 4 MG TAB.RAPDIS TRANSLINGU (01:45)
== END 2021-09-07 01:46 | disposition home or self-care (01) ==
PROVIDERS: Emergency Provider Internal Medicine; PCP Family Medicine
DX: O26.892 Other specified pregnancy related conditions, second trimester (principal); R00.2 Palpitations; R10.30 Lower abdominal pain, unspecified; O99.332 Smoking (tobacco) complicating pregnancy, second trimester; Z3A.15 15 weeks gestation of pregnancy
CPT/HCPCS: 36415; 80053; 81003; 84484; 85025; 93005; 99283

== ENCOUNTER 2021-10-10 22:03 | Emergency (ER) | payer MEDICAID, SELFPAY ==
--- NOTE | ~2021-10-10 | XR_ITS ---
EXAMINATION: XR CHEST CLINICAL INFORMATION: Shortness of breath. COMPARISON: Chest radiograph dated from 12/27/2017. TECHNIQUE: PA view of the chest was obtained. FINDINGS: No significant abnormality is noted involving the heart, lungs, mediastinum, bony thorax or soft tissues. XR/XR chest 1V IMPRESSION: No acute cardiopulmonary findings.
[2021-10-10 22:08] VITALS: BP 120/60; PULSE 110; O2SAT 98
[2021-10-10 22:24] VITALS: BP 102/82; PULSE 100; RESP 20; TEMP 36.4; O2SAT 100; BMI 28.3
== END 2021-10-11 00:41 | disposition left against medical advice (07) ==
LOC: HO.ED 10-11 00:36
PROVIDERS: Emergency Provider Emergency Medicine
DX: R07.9 Chest pain, unspecified (principal)
CPT/HCPCS: 71045; 99282; 99283

== ENCOUNTER 2022-03-04 22:53 | Emergency (ER) | payer MEDICAID, SELFPAY ==
--- NOTE | ~2022-03-04 | XR_ITS ---
EXAMINATION: XR HAND, RIGHT CLINICAL INFORMATION: Injury with pain COMPARISON: None TECHNIQUE: PA, lateral, and oblique views of the right hand. FINDINGS: The bones and soft tissues are normal. No fracture. Alignment is anatomic. Joint spaces are maintained. No erosions or soft tissue calcifications. XR/XR hand RT 2V IMPRESSION: Normal right hand.
[2022-03-04 22:56] VITALS: BP 142/81; PULSE 100; RESP 18; TEMP 37.2; O2SAT 100; BMI 27.4
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
[2022-03-05] MEDS: Acetaminophen 325 MG TABLET 975 MG PO (00:14)
== END 2022-03-05 00:20 | disposition home or self-care (01) ==
PROVIDERS: Emergency Provider Student in an Organized Health Care Education/Training Program; PCP Family Medicine
DX: S60.221A Contusion of right hand, initial encounter (principal); Y04.2XXA Assault by strike against or bumped into by another person, initial encounter; Y93.89 Activity, other specified; Y92.511 Restaurant or cafe as the place of occurrence of the external cause; Y99.9 Unspecified external cause status
CPT/HCPCS: 73120; 99283

== ENCOUNTER → 2022-03-24 10:27 | Outpatient (REF) | payer MEDICAID, SELFPAY | LOC: HO.CARD 10:27 | PROVIDERS: Visit Provider Internal Medicine Cardiovascular Disease | DX: R00.2 Palpitations (principal); R93.1 Abnormal findings on diagnostic imaging of heart and coronary circulation | CPT/HCPCS: 99202 ==

== ENCOUNTER → 2022-05-01 08:28 | Outpatient (REF) | payer MEDICAID, SELFPAY ==
--- NOTE | 2022-05-01 08:34 | ECG_ITS ---
Hook-up date: 2022-05-01 08:24:00 Duration: 47:59:00 Test Indications: PALPITATIONS Medications: [id number] QRS complexes 6 Ventricular ectopics which represent <1 % of total QRS comp. * Supraventricular ectopics which represent % of total QRS comp. * Paced QRS complexs which represent % of total QRS comp. VENTRICULAR ECTOPY 4 Isolated 0 Bigeminal Cycles 1 Couplets 0 Runs 0 Beats in Runs * Beats LONGEST at * BPM at :: -- * Beats FASTEST at * BPM at :: -- SUPRAVENTRICULAR ECTOPY * Isolated * Couplets * Runs * Beats in Runs * Beats LONGEST at * BPM at :: -- * Beats FASTEST at * BPM at :: -- HEART RATES 50 MIN at 02:52:32 2022-05-02 91 AVG 148 MAX at 15:15:38 2022-05-02 LONGEST RR 1.4240 secs at 08:14:01 2022-05-02 S-T LEVELS Channel 1 - 128 mm at 08:24:00 2022-05-01 - 128 mm at 08:24:00 2022-05-01 Channel 2 - 128 mm at 08:24:00 2022-05-01 - 128 mm at 08:24:00 2022-05-01 Channel 3 - 128 mm at 02:74:31 -- - 128 mm at 02:74:31 Underlying rhythm is sinus; Average ventricular rate 91/min; range 50-148/min; About 43% of the time, rate >100/min; In some strips, P wave morphology appears different and could be ectopic atrial- but normal ventricular rate; Very rare supraventricular ectopy; No sustained arrhythmias; Patient did not report any symptoms in the diary Referred By: Sean Quiroz Overread By: LON GREEN
--- NOTE | 2022-05-01 08:34 | CA_ITS ---
Transthoracic Echocardiogram Patient (Last, First, Middle): Kaya Jaramillo R Gender: Female Date of : 2000 Age: 21 Procedure Date: 05/01/2022 Procedure Type: Transthoracic Echocardiogram Location: OP Height: 157.48 cm Weight: 72.58 kg BSA: 1.74 m2 Heart Rate: bpm BP: 100 / 70 mmHg Sales Manager [place]: TO Referring MD: Sean Quiroz MD Divorce Attorney: Sean Quiroz MD Symptoms: R93.1 - Abnormal findings on diagnostic imaging of heart and coronary ci... Study Quality: Adequate ECG Rhythm: Sinus Conclusions: - Normal LV systolic and diastolic function Findings Left Ventricle Normal left ventricular size, thickness, and systolic function. The visually estimated ejection fraction is between 60-65%. Spectral Doppler is indicative of a normal filling pattern. Pericardium/Pleural There is no evidence of pericardial effusion. Prior Study Comparison No significant change compared to prior study dated: 08/27/2021. Measurements 2D Linear Measurements IVSd: 0.81 0.6-0.9/0.6-1.0 cm LVIDd: 3.86 3.9-5.3/4.2-5.9 cm LVIDd Index: 2.22 2.4-3.2/2.2-3.1 cm/m2 LVIDs: 2.73 2.0-3.6 cm LVPWd: 0.80 0.7-1.1 cm LA Diam: 2.60 2.7-3.8/3.0-4.0 cm LAIDs Index: 1.49 1.5-2.3 cm/m2 LV Mass: 110.87 67-162/88-224 g LV Mass Index: 63.72 43-95/49-115 g/m2 LVOT Diam: 1.70 3.0+(-)1.3 cm 2D Systolic Function EF 4C: 56.60 >55% EF 2C: 57.40 >55% Mitral Valve MV Pk E: 0.70 MV PK A: 0.67 MV Decel Time: 147.00 E/A: 1.00 E'Lateral: 14.40 E'Medial: 11.10 E/E' Med: 6.30 E/E' Lat: 4.90 PHT: 43.00 MVA PHT: 5.12 Decel [place]: 4.78 LVOT LVOT Diam: 1.70 LVOT Area: 2.27 Diastolic Function MV Pk E: 0.70 MV Pk A: 0.67 E/A: 1.00 E'Medial: 11.10 E/E' Med: 6.30 E' Laterial: 14.40 E/E' Lat: 4.90 Right Ventricle TAPSE (mm): 15.90 TVS' Ace: 9.14 Tricuspid Valve RA Press: 3.00 Great Vessels Aorta Ao Asc: 2.20 2.1-3.4 cm Updated in Other Vendor System with Status of Final Sean Quiroz MD electronically signed on 05/01/2022 5:57:29 PM with status of Final
== END ==
LOC: HO.CARD 08:28
PROVIDERS: PCP Family Medicine; Visit Provider Internal Medicine Cardiovascular Disease
DX: R00.2 Palpitations (principal); R93.1 Abnormal findings on diagnostic imaging of heart and coronary circulation
CPT/HCPCS: 93225; 93226; 93308

== ENCOUNTER → 2022-05-12 14:04 | Outpatient (BNVA) | payer MEDICAID, SELFPAY | PROVIDERS: PCP Family Medicine; Referring Provider Family Medicine; Visit Provider Internal Medicine Cardiovascular Disease | DX: R00.0 Tachycardia, unspecified (principal) | CPT/HCPCS: 99212 ==

== ENCOUNTER 2022-05-18 18:30 | Emergency (ER) | payer MEDICAID, SELFPAY ==
[2022-05-18 18:34] VITALS: BP 140/88; PULSE 102; RESP 18; TEMP 36.7; O2SAT 96; BMI 309.0
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
== END 2022-05-18 21:00 | disposition home or self-care (01) ==
PROVIDERS: Emergency Provider Emergency Medicine; PCP Family Medicine
DX: L25.9 Unspecified contact dermatitis, unspecified cause (principal); L50.9 Urticaria, unspecified; F17.200 Nicotine dependence, unspecified, uncomplicated
CPT/HCPCS: 99282; 99283

== ENCOUNTER 2023-07-25 11:58 | Emergency (ER) | payer MEDICAID, SELFPAY ==
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
[2023-07-25 12:13] VITALS: BP 143/93; PULSE 113; RESP 16; TEMP 36.9; O2SAT 98; BMI 29.3
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
[2023-07-25 12:39] LABS: Hematocrit 43.4 % (37.0-47.0); Hemoglobin 14.7 g/dl (12.0-16.0); Mean Corpuscular HGB Conc 33.9 g/dl (31.0-35.0); Mean Corpuscular Hemoglobin 31.2 pg (27.0-33.0); Mean Corpuscular Volume 92.1 fL (80.0-98.0); Mean Platelet Volume 10.7 fL (9.4-12.3); Platelet Count 234 X10*3/uL (160-400); Red Blood Count 4.71 X10*6/uL (4.20-5.50); Red Cell Distribution Width 12.8 % (11.0-16.0)
[2023-07-25 12:40] LABS: WBC ABN SCTR FOR CBC 1
[2023-07-25 12:49] LABS: Ethanol 233 mg/dL
--- OUTSIDE RECORDS SUMMARY | 2023-07-25 12:50 | XMS_ITS | Continuity of Care Document ---
Author Name Unknown Organization [facility] Address Unknown Care Team Providers Care Freight Solicitor Name Role Phone Fuad INTERIANO, Jayce Betancourt Primary Care Physician [phone] Encounter [facility] [place] Date(s): 09/10/21 - 10/10/21 [facility] and [facility] Allergies, Adverse Reactions, Alerts Substance Reaction Severity Status erythromycin Active amitriptyline Active Zithromax C/O: a swelling Rash Active Medications amitriptyline 10 mg oral tablet See Instructions, start with 1 tablet by mouth at bedtime for 10 days, then 2 tablets at bedtime for 10 days, then 3 tablets at bedtime, # 90 tablet, 3 Refills, Maintenance, 07/23/15 14:01:25, start with 1 tablet by mouth at bedtime for 10 days, then... Start Date: 07/23/15 Status: Ordered LORazepam 1 mg oral tablet See Instructions, 1 tablet By Mouth 30 minutes prior to MRI, may repeat in 30 minutes if still anxious, # 3 tablet, 0 Refills, Maintenance, 07/23/15 14:06:04 Start Date: 07/23/15 Status: Ordered naproxen 500 mg oral tablet 1 tablet = 500 mg, By Mouth, 2 times a day, PRN as needed for pain, # 60 tablet, 0 Refills, Maintenance, 02/13/15 14:29:25, Tablet Start Date: 02/13/15 Status: Ordered Nexplanon 68 mg subcutaneous implant 1 each = 68 mg, Subcutaneous Infusion, Once, 0 Refills, Maintenance, 07/23/15 13:40:03 Start Date: 07/23/15 Status: Ordered Paxil Tablet 20 mg, By Mouth, Daily, Maintenance, 07/23/15 13:19:01 Start Date: 10/27/15 Status: Ordered PNV By Mouth, Daily, 0 Refills, Maintenance, 09/11/21 17:02:00 EST, Partial fill upon patient request if the prescription is for a schedule II opioid drug. Start Date: 09/11/21 Status: Ordered ProAir HFA 90 mcg/inh inhalation aerosol with adapter 2 puffs, Inhalation, 4 times a day, PRN Wheezing/Shortness of Breath, # 8.5 Gm, 0 Refills, Maintenance, 02/13/15 14:27:03, Aerosol Start Date: 02/13/15 Status: Ordered Social History Social History Type Response Smoking Status Never smoker; Tobacc o user in household: No entered on: 07/23/15 Sex
--- OUTSIDE RECORDS SUMMARY | 2023-07-25 12:50 | XMS_ITS | Continuity of Care Document ---
Author Name Unknown Organization [facility] Address Unknown Care Team Providers Care Junior Media Buyer Name Role Phone Fuad INTERIANO, Jayce Betancourt Primary Care Physician Encounter [facility] [place] Date(s): 09/09/21 - 10/09/21 [facility] and [facility] Allergies, Adverse Reactions, Alerts Substance Reaction Severity [...] Mouth, Daily, Maintenance, 07/23/15 13:19:01 Start Date: 07/23/15 Status: Ordered PNV By Mouth, Daily, 0 [...]
--- OUTSIDE RECORDS SUMMARY | 2023-07-25 12:50 | XMS_ITS | Continuity of Care Document ---
Author Name Unknown Organization [facility] Address Unknown Care Team Providers Care Configuration Management Architect Name Role Phone Jayce Merida MD Primary Care Physician [phone] [place] [facility] [place] [facility] Attending Physician: Not on Staff, Attending MD Referring Physician: Krystin Ball CNM Allergies, Adverse Reactions, Alerts Substance Reaction Severity [...]
--- OUTSIDE RECORDS SUMMARY | 2023-07-25 12:50 | XMS_ITS | Continuity of Care Document ---
Author Name Unknown Organization [facility] Address Unknown Care Team Providers Care Physician Office Assistant Name Role Phone Jayce Merida MD Primary Care Physician [phone] Encounter [facility] [place] Date(s): 09/22/21 - 10/22/21 [facility] and [facility] Attending Physician: Flor Almonte Admitting Physician: Flor Almonte Referring Physician: Flor Almonte Allergies, Adverse Reactions, Alerts Substance Reaction Severity [...]
--- OUTSIDE RECORDS SUMMARY | 2023-07-25 12:50 | XMS_ITS | Continuity of Care Document ---
Author Name Unknown Organization [facility] ter Address [address] [place] [id number] Care Team Providers Care Tar Pot Man Name Role Phone Fuad INTERIANO, Jayce Betancourt Primary Care Physician Encounter [facility] [place] Date(s): 09/11/21 - 09/11/[address] [id number] Discharge Disposition: A-D/C Home Attending Physician: Salma Cid MD Admitting Physician: Salma Cid MD Referring Physician: Salma Cid MD Allergies, Adverse Reactions, Alerts Substance Reaction Severity [...] 14:27:03, Aerosol Start Date: 02/13/15 Status: Ordered Procedures Procedure Date Related Diagnosis Body Site Status Adenoidectomy Completed [place] tooth Completed Vital Signs Most recent to oldest [Reference Range]: 1 Weight 67.4 kg (09/11/21 4:45 PM) Oxygen Saturation [94-100 %] 100 % (09/11/21 4:45 PM) Pulse Rate [55-90 bpm] 90 bpm (09/11/21 4:45 PM) Blood Pressure [90-138/55-84 mm Hg] 115/ 71mm Hg (09/11/21 4:45 PM) Respiratory Rate [16-30 br/min] 18 br/mi n (09/11/21 4:45 PM) Temperature [96.8-100.4 DegF] 98.5 DegF (09/11/21 4:45 PM) Mode of Delivery (Oxygen) Room air (09/11/21 4:45 PM) Blood pressure sites Arm, right 1 (09/11/21 4:45 PM) Temperature Route Oral (09/11/21 4:45 PM) Dry Weight 67.4 kg (09/11/21 4:45 PM) 1Result Comment: right upper arm measured 29cm Social History Social History Type Response Smoking Status Never smoker; Tobacc o user in household: No entered on: 07/23/15 Sex
[2023-07-25 12:58] LABS: Band Neutrophils Percent 2 % (3-5); Neutrophils Percent Manual 71 % (45-73)
[2023-07-25 12:59] LABS: Alanine Aminotransferase 104 U/L (0-31); Albumin Level 4.8 g/dL (3.5-5.0); Alkaline Phosphatase 86 U/L (39-117); Anion Gap 18 (12-20); Aspartate Amino Transferase 150 U/L (5-31); Bilirubin Total 0.8 mg/dL (0.0-1.0); Blood Urea Nitrogen 5 mg/dL (9-16); Calcium 9.5 mg/dL (8.4-10.2); Carbon Dioxide 21 mmol/L (22-29); Chloride 107 mmol/L (96-108); Creatinine Clr Calc Pharmacy 101.2; Estimated Glomerular Filt Rate > 60; Glucose Random 111 mg/dL (60-115); Lymphocytes Percent Manual 23 % (20-40); Monocytes Percent Manual 4 % (2-11); Potassium 3.8 mmol/L (3.3-5.1); Sodium 142 mmol/L (135-145)
[2023-07-25 13:00] LABS: HCG Quantitative < 2 mIU/mL; Platelet Estimate NORMAL (NORMAL); Platelet Morphology Comment NORMAL; RBC Morphology NORMAL; Toxic Granulation PRESENT; Troponin-I High Sensitivity < 2.7 ng/L (<3.5-17.0)
[2023-07-25 13:01] LABS: Lymphocytes Absolute Manual 1.8 X10*3/uL (1.2-4.9); Monocytes Absolute Manual 0.3 X10*3/uL (0.1-1.2); Neutrophils Absolute Manual 5.7 X10*3/uL (2.0-8.3); White Blood Count 7.8 X10*3/uL (4.8-10.8)
[2023-07-25 16:13] VITALS: BP 113/77; PULSE 101; RESP 12; O2SAT 100
[2023-07-25 16:28] LABS: Appearance Urine Clear; Color Urine Yellow; Glucose Urine UA Negative (Negative); Leukocyte Esterase Urine Negative (Negative); Nitrite Urine Negative (Negative); Specific Gravity - Urine <= 1.005 (1.005-1.025); UMIC TRIGGER UACC YES; Urine Blood Small (1+) (Negative); Urine Ketones Negative (Negative); Urine Protein Negative (Neg-Trace)
[2023-07-25 16:37] LABS: Amphetamine Screen Urine Not Detected (Not Detect); Barbiturates, Urine Not Detected (Not Detect); Benzodiazepines Screen Urine Not Detected (Not Detect); Cannabinoid Screen Urine Not Detected (Not Detect); Cocaine Screen Urine Not Detected (Not Detect); Fentanyl, urine Not Detected (Not Detect); Opiate Screen Urine Not Detected (Not Detect); Phencyclidine Screen Urine Not Detected (Not Detect)
[2023-07-25 16:43] LABS: Bacteria Urine Trace (None Seen); Hyaline Casts Urine 0-2 /LPF (0-2); RBC Urine 0-2 /HPF (0-2); WBC Urine 0-5 /HPF (0-5)
== END 2023-07-25 18:11 | disposition home or self-care (01) ==
PROVIDERS: Emergency Provider Student in an Organized Health Care Education/Training Program; PCP Family Medicine
DX: S62.91XA Unspecified fracture of right hand, initial encounter for closed fracture (principal); S93.401A Sprain of unspecified ligament of right ankle, initial encounter; R51.9 Headache, unspecified; R00.0 Tachycardia, unspecified; M54.2 Cervicalgia; R10.2 Pelvic and perineal pain; V43.52XA Car driver injured in collision with other type car in traffic accident, initial encounter; Y93.9 Activity, unspecified; Y92.410 Unspecified street and highway as the place of occurrence of the external cause; Y99.9 Unspecified external cause status; Z79.899 Other long term (current) drug therapy
CPT/HCPCS: 36415; 70450; 71260; 72125; 73110; 73610; 74177; 80053; 80307; 81001; 84484; 84702; 85007; 85027; 93005; 99285

== ENCOUNTER 2023-07-27 20:35 | Emergency (ER) | payer OTHER, SELFPAY ==
--- NOTE | ~2023-07-27 | XR_ITS ---
EXAMINATION: XR SHOULDER, RIGHT CLINICAL INFORMATION: Right shoulder pain COMPARISON: None available. TECHNIQUE: AP external rotation, Grashey, scapular Y, and axillary views of the right shoulder. FINDINGS: The bones and soft tissues are normal. No fracture. Glenohumeral and acromioclavicular alignment is anatomic with normal joint space. No abnormal soft tissue calcifications. XR/XR shoulder RT min 2V IMPRESSION: Normal right shoulder.
[2023-07-27 20:37] VITALS: BP 135/87; PULSE 102; RESP 16; TEMP 36.6; O2SAT 100; BMI 29.3
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
--- NOTE | 2023-07-27 22:15 | PC.NURSE ---
pt presents with ulnar gutter slpint in place on right arm. pt sts that sling is falling apart annd she is experiencing discomfort. this nurse removed splint and applied new ulnar gutter splint, pt sts that her arm feels much better- educated pt on importance of sling, reviewed worrisome signed and symptoms, pt will follow up with orthopedics as scheduled. pt was dc'd NAD
== END 2023-07-27 22:15 | disposition home or self-care (01) ==
PROVIDERS: Emergency Provider Student in an Organized Health Care Education/Training Program; PCP Family Medicine
DX: S46.811A Strain of other muscles, fascia and tendons at shoulder and upper arm level, right arm, initial encounter (principal); X58.XXXA Exposure to other specified factors, initial encounter; Y93.9 Activity, unspecified; Y92.9 Unspecified place or not applicable; Y99.9 Unspecified external cause status
CPT/HCPCS: 73030; 99282; 99283

== ENCOUNTER 2023-08-04 08:19 | Outpatient (AMB) | payer OTHER, SELFPAY ==
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
[2023-08-04 08:40] VITALS: BMI 29.3
== END 2023-08-04 09:25 | disposition home or self-care (01) ==
PROVIDERS: PCP Family Medicine; Visit Provider Physician Assistant
DX: S62.366A Nondisplaced fracture of neck of fifth metacarpal bone, right hand, initial encounter for closed fracture (principal)
CPT/HCPCS: 99203

== ENCOUNTER 2023-08-04 09:23 | Outpatient (REF) | payer OTHER, SELFPAY ==
--- NOTE | ~2023-08-04 | XR_ITS ---
EXAMINATION: XR HAND, RIGHT CLINICAL INFORMATION: Pain COMPARISON: None available. TECHNIQUE: PA, lateral, and oblique views of the right hand. FINDINGS: The bones and soft tissues are normal. No fracture. Alignment is anatomic. Joint spaces are maintained. No erosions or soft tissue calcifications. XR/XR hand RT min 3V IMPRESSION: Normal radiograph. No fracture or dislocation.
== END 2023-08-04 09:24 | disposition home or self-care (01) ==
LOC: HO.HOSX 09:23
PROVIDERS: Visit Provider Physician Assistant
DX: S62.366A Nondisplaced fracture of neck of fifth metacarpal bone, right hand, initial encounter for closed fracture (principal)
CPT/HCPCS: 73130

== ENCOUNTER 2023-08-18 09:25 | Outpatient (AMB) | payer OTHER, SELFPAY ==
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
[2023-08-18 09:41] VITALS: BMI 29.3
== END 2023-08-18 09:59 | disposition home or self-care (01) ==
PROVIDERS: PCP Family Medicine; Visit Provider Physician Assistant
DX: S62.366D Nondisplaced fracture of neck of fifth metacarpal bone, right hand, subsequent encounter for fracture with routine healing (principal)
CPT/HCPCS: 99213

== ENCOUNTER 2023-08-18 15:04 | Outpatient (REF) | payer OTHER, SELFPAY ==
--- NOTE | ~2023-08-18 | XR_ITS ---
EXAMINATION: XR HAND, RIGHT CLINICAL INFORMATION: Pain COMPARISON: Right hand radiograph from 10/04/2022 TECHNIQUE: PA, lateral, and oblique views of the right hand. FINDINGS: No acute visible fracture or dislocation. Negative ulnar variance. Stable 1 mm ossific density along the dorsal margin of the scaphoid. Joint spaces and alignment are maintained. Soft tissues are unremarkable. XR/XR hand RT min 3V IMPRESSION: 1. No acute visible fracture or dislocation. 2. Negative ulnar variance. 3. Stable 1 mm ossific density along the dorsal margin of the scaphoid.
== END 2023-08-18 15:05 | disposition home or self-care (01) ==
LOC: HO.HOSX 15:04
PROVIDERS: Visit Provider Physician Assistant
DX: S62.366D Nondisplaced fracture of neck of fifth metacarpal bone, right hand, subsequent encounter for fracture with routine healing (principal)
CPT/HCPCS: 73130

== ENCOUNTER 2025-03-23 00:31 | Emergency (ER) | payer OTHER, SELFPAY ==
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
[2025-03-23 00:33] VITALS: BP 118/92; PULSE 109; O2SAT 99
[2025-03-23 00:38] VITALS: BP 131/86; PULSE 106; RESP 20; O2SAT 97; BMI 28.5
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
--- NOTE | 2025-03-23 00:53 | PC.NURSE ---
pt ambulatory to bathroom with steady gait, pt noted to have bruising to the forehead
[2025-03-23 01:21] LABS: Urine Pregnancy NEGATIVE (NEGATIVE)
[2025-03-23 01:22] LABS: UPreg QC Valid YES
[2025-03-23] MEDS: Acetaminophen 325 MG TABLET 975 MG PO (02:27)
[2025-03-23 02:47] VITALS: BP 123/80; PULSE 98; RESP 18; TEMP 36.7; O2SAT 99
[2025-03-23 04:23] VITALS: BP 111/72; PULSE 88; RESP 18; TEMP 36.8; O2SAT 97
== END 2025-03-23 04:26 | disposition home or self-care (01) ==
PROVIDERS: Nurse Practitioner Family; Emergency Provider Emergency Medicine
DX: S06.0X0A Concussion without loss of consciousness, initial encounter (principal); S00.83XA Contusion of other part of head, initial encounter; V47.0XXA Car driver injured in collision with fixed or stationary object in nontraffic accident, initial encounter; Y93.89 Activity, other specified; Y92.414 Local residential or business street as the place of occurrence of the external cause; Y99.9 Unspecified external cause status
CPT/HCPCS: 70450; 72125; 81025; 99284

== ENCOUNTER → 2025-03-23 00:50 | Outpatient (BNV) | payer OTHER, SELFPAY | PROVIDERS: Emergency Provider Emergency Medicine; Visit Provider General Practice | DX: S09.90XA Unspecified injury of head, initial encounter (principal); V89.2XXA Person injured in unspecified motor-vehicle accident, traffic, initial encounter | CPT/HCPCS: 70450; 72125 ==